=== PATIENT | male | born 1960 | race Hispanic/Latino ===

== ENCOUNTER 2017-11-02 12:04 | Outpatient (CLI) | payer OTHER ==
--- NOTE | 2017-11-02 17:21 | EKG ---
Test Reason : Blood Pressure : / mmHG Vent. Rate : 072 BPM Atrial Rate : 072 BPM P-R Int : 130 ms QRS Dur : 078 ms QT Int : 390 ms P-R-T Axes : 031 072 059 degrees QTc Int : 427 ms Normal sinus rhythm Nonspecific ST changes possible septal infarct unknown age No previous ECGs available Confirmed by DR. Cally MOREIRA ([id number]) on 11/02/2017 5:21:26 PM Referred By: YULIYA Confirmed By:DR. Cally MOREIRA
== END 2017-11-02 12:05 | disposition home or self-care (01) ==
LOC: LABBT 12:04
PROVIDERS: ATTEND Orthopaedic Surgery
DX: Z01.810 Encounter for preprocedural cardiovascular examination (principal); S52.571A Other intraarticular fracture of lower end of right radius, initial encounter for closed fracture
CPT/HCPCS: 93005; 93010

== ENCOUNTER 2017-11-06 12:21 | Day surgery (SDC) | payer OTHER ==
[2017-11-02 12:42] VITALS: BMI 26.4
[2017-11-06] MEDS ORDERED: ePHEDrine/0.9% NaCl/PF SYRINGE 50 mg/10 ml ONE (12:59)
[2017-11-06] MEDS ORDERED: Lidocaine 1% PF 5 ML VIAL ONE (12:59)
[2017-11-06] MEDS ORDERED: Ketorolac Tromethamine 30 MG/ML VIAL ONE (12:59)
[2017-11-06] MEDS ORDERED: Dexamethasone 20 MG/5 ML VIAL ONE (12:59)
[2017-11-06] MEDS ORDERED: Esmolol 100 MG/10 ML VIAL ONE (12:59)
[2017-11-06] MEDS ORDERED: PROPOFOL 200 MG/20 ML VIAL ONE (12:59)
[2017-11-06] MEDS ORDERED: Fentanyl 100 MCG/2 ML VIAL ONE ×4 (13:58→17:37)
[2017-11-06] MEDS ORDERED: Bupivacaine HCl 0.5%/Epinephrine 1:200,000/PF 30 ml Vial ONE (14:26)
[2017-11-06] MEDS ORDERED: hydrALAZINE 20 MG/ML VIAL ONE (16:05)
[2017-11-06] MEDS ORDERED: HYDROmorphone 0.5 MG/0.5 ML SYRINGE ONE ×3 (16:11→17:32)
--- NOTE | 2017-11-06 17:15 | RAD ---
7 FLUOROSCOPIC SPOT IMAGES OF RIGHT WRIST: Date: 11/06/17 INDICATION: Open reduction and internal fixation right wrist. FINDINGS: No comparisons are available. There is a volar plate and screw construct fixating a distal radius fracture. Fracture alignment is n ear anatomic. Mildly displaced ulnar styloid process fracture is present. Soft tissue swelling surrou nding the fracture. IMPRESSION: 1. Open reduction and internal fixation of right distal radius fracture. 2. Mildly displaced ulnar styloid process fracture. POS: PAUL
[2017-11-06] MEDS ORDERED: Labetalol HCl 100 MG/20 ML VIAL ONE (18:28)
--- NOTE | 2017-11-07 01:06 | OP ---
DATE OF SURGERY: 11/06/2017 PREOPERATIVE DIAGNOSIS: Fracture of the right distal radius with ulnar styloid fracture. POSTOPERATIVE DIAGNOSES: Fracture of the right distal radius with ulnar styloid fracture plus tear o f the triangular fibrocartilage complex. PROCEDURES: 1. ORIF of right distal radius. 2. Open TFCC repair. SURGEON: Gilmer Moon M.D. PROCEDURE IN DETAIL: The patient was brought to the operating room and after administration of a gen eral anesthetic intubation, the right upper extremity was prepped and draped in the usual fashion and the tourniquet was inflated. A straight longitudinal incision was made over the volar radial aspect of the distal forearm and a V- cut was made across the wrist. Subcutaneous flaps were elevated and the flexor tendons were retracte d out of the way. The pronator quadratus was taken down and the fracture was identified. It was com minuted intraarticular and had some volar angulation and shortening, five pounds of weights were mari ched to the wrist through finger traps on the fingers to help hold the fracture out to length. The f racture was reduced and a volar buttress plate was applied, getting good fixation proximally and dist ally. Several adjustments had to be made under fluoroscopy, but the final result showed appeared to be an anatomic reduction with good position of the plate and screws. Permanent x-rays were taken. T he wound was copiously irrigated and the pronator quadratus was reattached with 2-0 Vicryl, and the s kin was closed with nylon. The distal radial ulnar joint was loaded manually and appeared to be unst able. Therefore, I decided to look at the TFCC ligament. A dorsal incision was made over the interv al between the distal radius and ulna, and the extensor digiti minimi was released from its compartme nt. An inverted T-shaped cut was made in the joint and the TFCC was identified and appeared to be pa tulous and not reduced or possibly torn. Another incision was made over the ulnar styloid, taking ca re to avoid the dorsal sensory branch of the ulnar nerve. There was old blood and found in this inci adams and the TFCC and ulnar styloid were completely avulsed. Drill holes were made in the ulna and t he TFCC and styloid fragment were reattached with a single 2-0 FiberWire horizontal mattress. The wo und was irrigated again and closed with nylon. The other incision was also closed with nylon. The w ounds were infiltrated with Marcaine. A bulky hand dressing with a sugar-tong splint was applied wit h the forearm in 30 degrees of supination. The patient was taken to recovery room in satisfactory co ndition. He was monitored. When he was awake and stable, he was discharged to home. He was given prescriptio n for pain medication, wound care instructions, and a followup appointment.
== END 2017-11-06 19:54 | disposition home or self-care (01) ==
LOC: SDC 12:21
PROVIDERS: ATTEND Orthopaedic Surgery
PROC: 0PSH04Z Reposition Right Radius with Internal Fixation Device, Open Approach (ICD-10-PCS; principal; 2017-11-06)
PROC: 0RQN0ZZ Repair Right Wrist Joint, Open Approach (ICD-10-PCS; principal; 2017-11-06)
DX: S52.571A Other intraarticular fracture of lower end of right radius, initial encounter for closed fracture (principal); S63.591A Other specified sprain of right wrist, initial encounter; S52.611A Displaced fracture of right ulna styloid process, initial encounter for closed fracture; W19.XXXA Unspecified fall, initial encounter
CPT/HCPCS: 76001; 96374; 96375; C1713; J0360; J0670; J1100; J1170; J1885; J2001; J2704; J3010